=== PATIENT | female | born 1995 | race Caucasian/White ===

== ENCOUNTER 2017-04-12 16:19 | Emergency (ER) | payer OTHER ==
--- NOTE | ~2017-04-12 | CT4 ---
[facility] A Service of [facility] RADIOLOGY TEXT RESULTS PATIENT: DIOMEDES LEWIS LOCATION: SED : [birth year] UNIT #: [id number] AGE: [address]: Rei Mendes MD SEX: F ORDER DR: [id number] [place] [id number] E MR#: [id number] Acc #: [id number] NAME: DIOMEDES LEWIS. : 1995 SEX: F STUDY DATE/TIME: 04/12/2017 18:26 UNIT: SED ROOM: STUDY DESCRIPTION: CT Abd and Pelv Wo Cont Attending Physician: Rei Mendes M.D. Ordering Physician: Tenzin Villa M.D. Primary Care Physician: Marah Naik M.D. MEDICAL IMAGING REPORT This report is preliminary unless electronic signature is present. EXAM Abdomen and pelvis CT no contrast 04/12/2017. INDICATIONS 21-year-old female with headache, fever, vomiting, elevated white count, pain on contact with the abdomen and pelvis; onset of symptoms 1 o'clock today. TECHNIQUE Noncontrast abdomen and pelvis CT was performed. This CT exam was performed with one or more of the following radiation dose reduction techniques: automatic exposure control, adjustment of mA and/or kV according to patient size, and iterative reconstruction. COMPARISON We have no comparisons. FINDINGS CT ABDOMEN: Exam markedly degraded by noncontrast technique. Lung bases clear. Aorta unremarkable. Spleen, adrenal glands, pancreas, gallbladder, and liver unremarkable. No hydronephrosis of either kidney. Ureters not well visualized or assessed. Stomach decompressed. CT PELVIS: Bladder unremarkable. Intrauterine device present. Free fluid in the pelvis, likely physiologic. Bowel unremarkable. Appendix not clearly identified, but no secondary sign of appendicitis. Stool burden indicative of constipation. No suspicious bone lesion. IMPRESSION 1. No clearly acute process identified. No radiopaque stone or hydronephrosis. Appendix not identified, but no secondary sign of appendicitis. 2. Stool burden suggestive of constipation. [facility] A Service of [facility] RADIOLOGY TEXT RESULTS PATIENT: DIOMEDES LEWIS LOCATION: SED : 97 UNIT #: [id number] AGE: [address]: Rei Mendes MD SEX: F ORDER DR: 3. Free fluid in the pelvis likely physiologic. Intrauterine device noted. Dictated by... Avery Johnston M.D. THIS IS AN ELECTRONICALLY VERIFIED REPORT Avery Johnston M.D. at 04/13/2017 2:25 PM Yogi TD: 04/13/2017 13:37 JOB #: [id number] MEDICAL IMAGING REPORT Page 1 of 1
[~2017-04-12 16:19] MED LIST: ALBUTEROL17 GM INH; CALCIUM1 TAB.CHEW; FLEXERIL PO; MOTRIN600 M2 PO; UNK MUSCLE RELAXER; ZOFRAN ODT4 MG/UDTAB PO
[2017-04-12 16:46] LABS: BASOPHIL% 0.1 % (0-2.5); EOSINOPHIL% 0.3 % (0.0-7.0); HEMATOCRIT 37.5 % (35.0-45.0); HEMOGLOBIN 13.1 gm/dL (12.0-16.0); LYMPHOCYTE# 1.1 X10e3 (1.0-3.5); LYMPHOCYTE% 8.8 % (17.0-45.0); MEAN CELL VOLUME 91.2 FL (83-96); MEAN CORPUSCULAR HEMOGLOBIN 31.8 PG (28-34); MEAN CORPUSCULAR HGB CONC 34.9 g/dL (30-36); MEAN PLATELET VOLUME 8.6 FL (6.5-11.5); MONOCYTE# 0.6 X10e3 (0-1.0); MONOCYTE% 5.2 % (3.0-12.0); NEUTROPHIL# 10.3 X10e3 (1.5-7.1); NEUTROPHIL% 85.6 % (40-75); PLATELET COUNT 176 X10e3 (140-420); RED BLOOD COUNT 4.11 X10e (3.90-5.30); RED CELL DISTRIBUTION WIDTH 12.4 % (11.0-15.5); WHITE BLOOD COUNT 12.1 X10e3 (4.0-10.5)
[2017-04-12 16:54] LABS: DIFF IND NO
[2017-04-12 17:00] LABS: URINE SOURCE CLEAN CATCH
[2017-04-12 17:02] LABS: URINE APPEARANCE CLEAR; URINE BILIRUBIN NEG (NEG); URINE BLOOD NEG (NEG); URINE COLOR YELLOW; URINE GLUCOSE NEG (NORM); URINE KETONE NEG (NEG); URINE LEUKOCYTE ESTERASE 1+ (NEG); URINE NITRATE NEG (NEG); URINE PH 6.5 (5-8); URINE PROTEIN NEG (NEG); URINE SPECIFIC GRAVITY <=1.005 (1.003-1.035); URINE UROBILINOGEN 0.2 MG/DL (NORM)
[2017-04-12 17:05] LABS: MICRO INDICATED? YES
[2017-04-12 17:08] LABS: CULTURE INDICATED? NO; URINE BACTERIA NEG (NEG); URINE RBC 0-2 /[HPF] (0-2)
[2017-04-12 17:14] LABS: ALBUMIN SERUM 4.5 g/dL (3.5-5.0); BILIRUBIN, DIRECT 0.1 mg/dL (0.0-0.2); BILIRUBIN,INDIRECT 0.7 mg/dL (0.0-0.9); BILIRUBIN,TOTAL 0.8 mg/dL (0.2-2.0); CALCIUM SERUM 9.1 mg/dL (8.4-10.2); CREATININE SERUM 0.8 mg/dL (0.6-1.4); POTASSIUM 3.4 mmol/L (3.5-5.1); PROTEIN TOTAL SERUM 7.9 g/dL (6.0-8.3)
== END 2017-04-12 20:20 | disposition home or self-care (01) ==
LOC: SED 16:19
PROVIDERS: Emergency Medicine
DX: N39.0 Urinary tract infection, site not specified (principal); R11.2 Nausea with vomiting, unspecified; J45.909 Unspecified asthma, uncomplicated
CPT/HCPCS: 36415; 74176; 80048; 80076; 81003; 82150; 83690; 84703; 85025; 87651; 96361; 96365; 96375; 99284; J1885; J1956; J2405